=== PATIENT | male | born 1960 | race Caucasian/White ===

== ENCOUNTER 2018-12-05 10:26 | Observation (INO) | payer BC ==
[2018-12-05] MEDS ORDERED: methylPREDNISolone Sodium Succinate 125 MG/2 ML SDV IVPUSH ONE (10:28)
[2018-12-05] MEDS ORDERED: Albuterol/Ipratropium 3.0-0.5 MG/3 ML Neb Soln NEB ONE (10:28)
--- NOTE | 2018-12-05 10:39 | EDM.PDOC ---
ED HPI GENERAL MEDICAL PROBLEM - General Stated Complaint: SOB Time Seen by Provider: 12/05/18 10:33 Source of Information: Reports: Patient History Limitations: Reports: No Limitations - History of Present Illness INITIAL COMMENTS - FREE TEXT/NARRATIVE: HISTORY AND PHYSICAL: History of present illness: Patient is a 58-year-old male who presents to the emergency room with complaints of shortness of breath, fatigue, swelling to his lower extremities and abdomen. He states "usually my water pills take care of all this". He was seen in the emergency room on 11/17/18 and diagnosed with lower extremity edema and pneumonia. At that time his Lasix was refilled and he was placed on Levaquin. He states he felt well for approximately 7-10 days after his previous ER visit but symptoms started to return. Since his discharge from the emergency room he states that his abdomen is "collecting fluid and pushing up on my lungs ". He states that he has no previous history of ascites. Over the past several days he has been needing to sleep in his recliner as he cannot lay flat. He denies any fever, chills, chest pain, nausea, vomiting, diarrhea, constipation or dysuria. He states he has been able to eat and drink appropriately. Review of systems: As per history of present illness and below otherwise all systems reviewed and negative. Past medical history: As per history of present illness and as reviewed below otherwise noncontributory. Surgical history: As per history of present illness and as reviewed below otherwise noncontributory. Social history: See social history for further information Family history: As per history of present illness and as reviewed below otherwise noncontributory. Physical exam: General: Well-developed, overweight 58-year-old male. Alert and oriented. Obvious shortness of breath, which is exacerbated with physical activity and talking. HEENT: Atraumatic, normocephalic, pupils equal and reactive bilaterally, negative for conjunctival pallor or scleral icterus, mucous membranes moist, TMs normal bilaterally, throat clear, neck supple, nontender, trachea midline. No drooling or trismus noted. No meningeal signs. No hot potato voice noted. Lungs: Clear to auscultation, breath sounds equal bilaterally, chest nontender. Heart: S1S2, regular rate and rhythm without overt murmur Abdomen: Distended without ascites, obese, moderate tenderness throughout. Unable to appreciate masses. Negative for costovertebral tenderness. Pelvis: Stable nontender. Genitourinary: Deferred. Rectal: Deferred. Skin: Multiple scaly plaques to upper extremities and trunk (normal patient variance). Tight +2 edema to bilateral LE. Otherwise skin is intact, warm, dry. No lesions or rashes noted. Extremities: Atraumatic, moves all per self, tight +2 pitting edema to bilat LE , palpable pedal pulses bilat, negative for cords or calf pain. Neurovascular unremarkable. Neuro: Awake, alert, oriented. Cranial nerves II through XII unremarkable. Cerebellum unremarkable. Motor and sensory unremarkable throughout. Exam nonfocal. Notes: X-ray shows patchy opacities of the right base. Cardiomegaly with left atrial enlargement. Patient voided approx [address] of abdomen/pelvis shows deep tendon edema as well as flank edema. Enlarged liver. No ascites. Hydronephrosis of the left kidney with no obvious stone. No free air, bowel obstruction or other acute radiographic abnormalities. Suspected Liver disease. Dr. Santos was consulted on this case. He is agreeable to keeping this patient for observation admission. Patient is aware and agreeable. Diagnostics: CBC, CMP, UA, troponin, the BNP, chest x-ray, EKG, Influenza Therapeutics: Solu-Medrol, DuoNeb, Lasix, Rocephin Impression: RLL pneumonia Dyspnea Plan: Observation Med/Surg with telemetry Definitive disposition and diagnosis as appropriate pending reevaluation and review of above. Bilateral Leg Pain Score (Numeric/FACES): 6 - Related Data Allergies Allergy/AdvReac Type Severity Reaction Status Date / Time No Known Allergies Allergy Verified 12/05/18 10:40 Home Meds: Home Meds Furosemide [Lasix] 20 mg PO DAILY #30 tab 10/04/18 [Rx] Olmesartan Medoxomil [Benicar] 20 mg PO DAILY 12/05/18 [History] Past Medical History Cardiovascular History: Reports: High Cholesterol, Hypertension, Other (See Below) Other Cardiovascular History: Peripheral edema - Infectious Disease History Infectious Disease History: Reports: Chicken Pox, Measles, Mumps Social & Family History - Family History Family Medical History: Noncontributory - Caffeine Use Caffeine Use: Reports: Coffee ED ROS GENERAL - Review of Systems Review Of Systems: ROS reveals no pertinent complaints other than HPI. ED EXAM, GENERAL - Physical Exam Exam: See Below (See dictation) Course - Vital Signs Last Recorded V/S: Last Vital Signs Temp 99.2 F 12/05/18 10:37 Pulse 82 12/05/18 11:45 Resp 22 H 12/05/18 11:45 BP 180/87 H 12/05/18 11:45 Pulse Ox 93 L 12/05/18 11:45 - Orders/Labs/Meds Orders: Active Orders 24 hr Category Date Time Status Admission Status [Patient Status] [ADT] Stat ADT 12/05/18 12:27 Ordered Cardiac Monitoring [RC] . DIRECTED Care 12/05/18 12:27 Ordered EKG Documentation Completion [RC] STAT Care 12/05/18 10:28 Active RT Aerosol Therapy [RC] ASDIRECTED Care 12/05/18 10:28 Active Abdomen Pelvis wo Cont [CT] Stat Exams 12/05/18 10:40 Taken Chest 1V Frontal [CR] Stat Exams 12/05/18 10:28 Taken CULTURE BLOOD [BC] Stat Lab 12/05/18 11:06 Received CULTURE BLOOD [BC] Stat Lab 12/05/18 11:41 Received cefTRIAXone [Rocephin in Dextrose,Iso-Osm 1 GM/50 ML] 1 Med 12/05/18 12:28 Ordered gm Premix Bag 1 bag IV ONETIME Blood Culture x2 Reflex Set [OM.PC] Stat Oth 12/05/18 10:43 Ordered Medication Orders Ceftriaxone Sodium/Dextrose 1 (gm/ Premix) 50 mls @ 100 mls/hr IV ONETIME ONE Stop: 12/05/18 12:57 Labs: Laboratory Tests 12/05/18 12/05/18 12/05/18 Range/Units 10:42 10:42 10:42 WBC 7.11 (4.0-11.0) K/uL RBC 3.95 L (4.50-5.90) M/uL Hgb 12.3 L (13.0-17.0) g/dL Hct 36.9 L (38.0-50.0) % MCV 93.4 (80.0-98.0) fL MCH 31.1 (27.0-32.0) pg MCHC 33.3 (31.0-37.0) g/dL RDW Std Deviation 55.8 (28.0-62.0) fl RDW Coeff of Ald[place] 16 H (11.0-15.0) % Plt Count 156 (150-400) K/uL MPV 9.50 (7.40-12.00) fL Neut % (Auto) 70.7 (48.0-80.0) % Lymph % (Auto) 18.8 (16.0-40.0) % [place] % (Auto) 8.9 (0.0-15.0) % Eos % (Auto) 1.3 (0.0-7.0) % Baso % (Auto) 0.3 (0.0-1.5) % Neut # (Auto) 5.0 (1.4-5.7) K/uL Lymph # (Auto) 1.3 (0.6-2.4) K/uL [place] # (Auto) 0.6 (0.0-0.8) K/uL Eos # (Auto) 0.1 (0.0-0.7) K/uL Baso # (Auto) 0.0 (0.0-0.1) K/uL Nucleated RBC % 0.0 /100WBC Nucleated RBCs # 0 K/uL Lactate (0.20-2.00) mmol/L Sodium 132 L (136-148) mmol/L Potassium 4.7 (3.5-5.1) mmol/L Chloride 93 L (98-107) mmol/L Carbon Dioxide 31.0 (21.0-32.0) mmol/L BUN 12 (7.0-18.0) mg/dL Creatinine 1.3 (0.8-1.3) mg/dL Est Cr Clr Drug Dosing TNP Estimated GFR (MDRD) 57.1 ml/min Glucose 123 H (74-106) mg/dL Calcium 9.2 (8.5-10.1) mg/dL Total Bilirubin 1.5 H (0.2-1.0) mg/dL AST 20 (15-37) IU/L ALT 18 (14-63) IU/L Alkaline Phosphatase 152 H (46-116) U/L Troponin I < 0.050 (0.000-0.056) ng/mL B-Natriuretic Peptide 126 H (<100) PG/ML Total Protein 8.6 H (6.4-8.2) g/dL Albumin 3.3 L (3.4-5.0) g/dL Globulin 5.3 H (2.6-4.0) g/dL Albumin/Globulin Ratio 0.6 L (0.9-1.6) Urine Color Urine Appearance Urine pH (5.0-8.0) Ur Specific [place] (1.001-1.035) Urine Protein (NEGATIVE) mg/dL Urine Glucose (UA) (NEGATIVE) mg/dL Urine Ketones (NEGATIVE) mg/dL Urine Occult Blood (NEGATIVE) Urine Nitrite (NEGATIVE) Urine Bilirubin (NEGATIVE) Urine Urobilinogen (<2.0) EU/dL Ur Leukocyte Esterase (NEGATIVE) Urine RBC (0-2/HPF) Urine WBC (0-5/HPF) Ur Epithelial Cells (NONE-FEW) Urine Bacteria (NEGATIVE) 12/05/18 12/05/18 Range/Units 11:15 11:41 WBC (4.0-11.0) K/uL RBC (4.50-5.90) M/uL Hgb (13.0-17.0) g/dL Hct (38.0-50.0) % MCV (80.0-98.0) fL MCH (27.0-32.0) pg MCHC (31.0-37.0) g/dL RDW Std Deviation (28.0-62.0) fl RDW Coeff of [place] (11.0-15.0) % Plt Count (150-400) K/uL MPV (7.40-12.00) fL Neut % (Auto) (48.0-80.0) % Lymph % (Auto) (16.0-40.0) % [place] % (Auto) (0.0-15.0) % Eos % (Auto) (0.0-7.0) % Baso % (Auto) (0.0-1.5) % Neut # (Auto) (1.4-5.7) K/uL Lymph # (Auto) (0.6-2.4) K/uL [place] # (Auto) (0.0-0.8) K/uL Eos # (Auto) (0.0-0.7) K/uL Baso # (Auto) (0.0-0.1) K/uL Nucleated RBC % /100WBC Nucleated RBCs # K/uL Lactate 2.8 H (0.20-2.00) mmol/L Sodium (136-148) mmol/L Potassium (3.5-5.1) mmol/L Chloride (98-107) mmol/L Carbon Dioxide (21.0-32.0) mmol/L BUN (7.0-18.0) mg/dL Creatinine (0.8-1.3) mg/dL Est Cr Clr Drug Dosing Estimated GFR (MDRD) ml/min Glucose (74-106) mg/dL Calcium (8.5-10.1) mg/dL Total Bilirubin (0.2-1.0) mg/dL AST (15-37) IU/L ALT (14-63) IU/L Alkaline Phosphatase (46-116) U/L Troponin I (0.000-0.056) ng/mL B-Natriuretic Peptide (<100) PG/ML Total Protein (6.4-8.2) g/dL Albumin (3.4-5.0) g/dL Globulin (2.6-4.0) g/dL Albumin/Globulin Ratio (0.9-1.6) Urine Color YELLOW Urine Appearance CLEAR Urine pH 6.0 (5.0-8.0) Ur Specific [place] 1.020 (1.001-1.035) Urine Protein NEGATIVE (NEGATIVE) mg/dL Urine Glucose (UA) NEGATIVE (NEGATIVE) mg/dL Urine Ketones NEGATIVE (NEGATIVE) mg/dL Urine Occult Blood TRACE-INTACT H (NEGATIVE) Urine Nitrite NEGATIVE (NEGATIVE) Urine Bilirubin NEGATIVE (NEGATIVE) Urine Urobilinogen 0.2 (<2.0) EU/dL Ur Leukocyte Esterase NEGATIVE (NEGATIVE) Urine RBC 0-1 (0-2/HPF) Urine WBC 0-1 (0-5/HPF) Ur Epithelial Cells NOT SEEN (NONE-FEW) Urine Bacteria RARE (NEGATIVE) Meds: Medications Generic Name Dose Route Start Last Admin Trade Name Freq PRN Reason Stop Dose Admin Ceftriaxone Sodium/Dextrose 1 50 mls @ 100 mls/hr 12/05/18 12:28 gm/ Premix IV 12/05/18 12:57 ONETIME ONE Discontinued Medications Generic Name Dose Route Start Last Admin Trade Name Freq PRN Reason Stop Dose Admin Albuterol/Ipratropium 3 ml 12/05/18 10:28 12/05/18 10:56 Duoneb 3.0-0.5 Mg/3 Ml NEB 12/05/18 10:29 3 ml ONETIME ONE Administration Furosemide 40 mg 12/05/18 10:44 12/05/18 11:01 Lasix IVPUSH 12/05/18 10:45 40 mg NOW ONE Administration Methylprednisolone Sodium Succinate 125 mg 12/05/18 10:28 12/05/18 11:01 Solu-Medrol IVPUSH 12/05/18 10:29 125 mg ONETIME ONE Administration Departure - Departure Time of Disposition: 12:26 Disposition: Refer to Observation Clinical Impression: Dyspnea Qualifiers: Dyspnea type: unspecified Qualified Code(s): R06.00 - Dyspnea, unspecified Pneumonia Qualifiers: Pneumonia type: due to unspecified organism Laterality: right Lung location: lower lobe of lung Qualified Code(s): J18.1 - Lobar pneumonia, unspecified organism - Discharge Information Referrals: PCP,None [Primary Care Provider] - - My Orders Last 24 Hours: My Active Orders 12/05/18 10:28 EKG Documentation Completion [RC] STAT RT Aerosol Therapy [RC] ASDIRECTED Chest 1V Frontal [CR] Stat 12/05/18 10:40 Abdomen Pelvis wo Cont [CT] Stat 12/05/18 10:43 Blood Culture x2 Reflex Set [OM.PC] Stat 12/05/18 11:06 CULTURE BLOOD [BC] Stat 12/05/18 11:41 CULTURE BLOOD [BC] Stat 12/05/18 12:27 Admission Status [Patient Status] [ADT] Stat Cardiac Monitoring [RC] . DIRECTED 12/05/18 12:28 cefTRIAXone [Rocephin in Dextrose,Iso-Osm 1 GM/50 ML] 1 gm Premix Bag 1 bag IV ONETIME - Assessment/Plan Last 24 Hours: My Active Orders 12/05/18 10:28 EKG Documentation Completion [RC] STAT RT Aerosol Therapy [RC] ASDIRECTED Chest 1V Frontal [CR] Stat 12/05/18 10:40 Abdomen Pelvis wo Cont [CT] Stat 12/05/18 10:43 Blood Culture x2 Reflex Set [OM.PC] Stat 12/05/18 11:06 CULTURE BLOOD [BC] Stat 12/05/18 11:41 CULTURE BLOOD [BC] Stat 12/05/18 12:27 Admission Status [Patient Status] [ADT] Stat Cardiac Monitoring [RC] . DIRECTED 12/05/18 12:28 cefTRIAXone [Rocephin in Dextrose,Iso-Osm 1 GM/50 ML] 1 gm Premix Bag 1 bag IV ONETIME
[2018-12-05] MEDS ORDERED: Furosemide 40 MG/4 ML VIAL IVPUSH ONE (10:44)
[2018-12-05 11:23] LABS: CHLORIDE,CL 93 mmol/L (98-107); SODIUM,NA 132 mmol/L (136-148)
[2018-12-05] MEDS ORDERED: cefTRIAXone 1 GM in Premix Bag 1 BAG IV ONE (12:28)
[2018-12-05] MEDS ORDERED: Sodium Chloride 0.9% 2.5 ML Syringe FLUSH PRN (13:40)
[2018-12-05] MEDS ORDERED: Acetaminophen 325 MG Tab PO PRN (13:40)
[2018-12-05] MEDS ORDERED: Sodium Chloride 0.9% 10 ML Syringe FLUSH PRN (13:40)
[2018-12-05] MEDS ORDERED: Ondansetron 4 MG Tab.DIS PO PRN (13:40)
[2018-12-05] MEDS ORDERED: Temazepam 15 MG Cap PO PRN (13:40)
[2018-12-05] MEDS ORDERED: Albuterol/Ipratropium 3.0-0.5 MG/3 ML Neb Soln NEB PRN (13:40)
[2018-12-05] MEDS ORDERED: Bisacodyl 5 MG Tab PO PRN (13:40)
--- NOTE | 2018-12-05 13:44 | PCM.HP ---
H&P History of Present Illness - General Date of Service: 12/05/18 Admit Problem/Dx: Admission Diagnosis/Problem Admission Diagnosis/Problem Pneumonia Source of Information: Patient, Old Records History Limitations: Reports: No Limitations - History of Present Illness Initial Comments - Free Text/Narative: The patient is a 58-year-old gentleman who appears in into the emergency department with worsening shortness of breath and generalized swelling in his thighs and lower extremities. The patient says that he has been taking his Lasix although this has not worked for him. He also says that he has had difficulty sleeping over the past couple of days secondary to orthopnea. The patient has denied any dizziness or lightheadedness. He's had no nausea or vomiting. The patient has no history of heart disease or cardiomyopathy. The patient had cardiomyopathy on chest x-ray. The patient's chest x-ray does show patchy infiltrates predominantly and right lower lobe. Onset of Symptoms: Reports: Gradual Duration of Symptoms: Reports: Day(s): Location: Reports: Chest Quality: Reports: Dull Severity: Moderate Improves with: Reports: None Worsens with: Reports: None Associated Symptoms: Reports: Shortness of Breath Bilateral Leg Pain Score (Numeric/FACES): 6 - Related Data Allergies/Adverse Reactions: Allergies Allergy/AdvReac Type Severity Reaction Status Date / Time No Known Allergies Allergy Verified 12/05/18 10:40 Home Medications: Home Meds Furosemide [Lasix] 20 mg PO DAILY #30 tab 10/04/18 [Rx] Olmesartan Medoxomil [Benicar] 20 mg PO DAILY 12/05/18 [History] Past Medical History HEENT History: Reports: None Cardiovascular History: Reports: High Cholesterol, Hypertension, Other (See Below) Other Cardiovascular History: Peripheral edema Respiratory History: Reports: SOB Gastrointestinal History: Reports: None Genitourinary History: Reports: Renal Calculus Musculoskeletal History: Reports: None Neurological History: Reports: None Psychiatric History: Reports: None Endocrine/Metabolic History: Reports: None Hematologic History: Reports: None 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) - Infectious Disease History Infectious Disease History: Reports: Chicken Pox, Measles, Mumps Social & Family History - Family History Family Medical History: Noncontributory - Tobacco Use Smoking Status *Q: Current Every Day Smoker Years of Tobacco use: 40 Packs/Tins Daily: 1 - Caffeine Use Caffeine Use: Reports: Coffee - Alcohol Use Days Per Week of Alcohol Use: 7 Number of Drinks Per Day: 2 Total Drinks Per Week: 14 - Recreational Drug Use Recreational Drug Use: No H&P Review of Systems - Review of Systems: Review Of Systems: See Below General: Reports: Malaise, Weakness HEENT: Reports: No Symptoms Pulmonary: Reports: Shortness of Breath, Wheezing, Cough Cardiovascular: Reports: Chest Pain, Orthopnea Gastrointestinal: Reports: No Symptoms Genitourinary: Reports: No Symptoms Musculoskeletal: Reports: No Symptoms Skin: Reports: Rash Psychiatric: Reports: No Symptoms Neurological: Reports: No Symptoms Hematologic/Lymphatic: Reports: No Symptoms Immunologic: Reports: No Symptoms Exam - Exam Exam: See Below - Vital Signs Vital Signs: Last Vital Signs Temp 37.3 C 12/05/18 10:37 Pulse 82 12/05/18 11:45 Resp 22 H 12/05/18 11:45 BP 180/87 H 12/05/18 11:45 Pulse Ox 93 L 12/05/18 11:45 - Exam Quality Assessment: No: Supplemental Oxygen General: Alert, Oriented, Cooperative, Mild Distress HEENT: Conjunctiva Clear, EACs Clear, EOMI, Hearing Intact, Pupils Equal, PERRLA. No: Mucosa Moist & Magness (Dry) Neck: Supple, Trachea Midline Lungs: Crackles (Bi basilar) Cardiovascular: Regular Rate, Regular Rhythm GI/Abdominal Exam: Normal Bowel Sounds, No Distention (Not able to palpate secondary to patient body habitus) (Male) Exam: Deferred Rectal (Males) Exam: Deferred Back Exam: Normal Inspection, Full Range of Motion Extremities: Normal Inspection, Pedal Edema (Anasarca) Skin: Warm, Dry, Rash (Ichthyosiform rash to torso and arms) Neurological: Cranial Nerves Intact Psychiatric: Alert, Normal Affect, Normal Mood - Patient Data Lab Results Last 24 hrs: Laboratory Results - last 24 hr 12/05/18 12/05/18 12/05/18 Range/Units 10:42 10:42 10:42 WBC 7.11 (4.0-11.0) K/uL RBC 3.95 L (4.50-5.90) M/uL Hgb 12.3 L (13.0-17.0) g/dL Hct 36.9 L (38.0-50.0) % MCV 93.4 (80.0-98.0) fL MCH 31.1 (27.0-32.0) pg MCHC 33.3 (31.0-37.0) g/dL RDW Std Deviation 55.8 (28.0-62.0) fl RDW Coeff of Alda 16 H (11.0-15.0) % Plt Count 156 (150-400) K/uL MPV 9.50 (7.40-12.00) fL Neut % (Auto) 70.7 (48.0-80.0) % Lymph % (Auto) 18.8 (16.0-40.0) % [place] % (Auto) 8.9 (0.0-15.0) % Eos % (Auto) 1.3 (0.0-7.0) % Baso % (Auto) 0.3 (0.0-1.5) % Neut # (Auto) 5.0 (1.4-5.7) K/uL Lymph # (Auto) 1.3 (0.6-2.4) K/uL [place] # (Auto) 0.6 (0.0-0.8) K/uL Eos # (Auto) 0.1 (0.0-0.7) K/uL Baso # (Auto) 0.0 (0.0-0.1) K/uL Nucleated RBC % 0.0 /100WBC Nucleated RBCs # 0 K/uL Lactate (0.20-2.00) mmol/L Sodium 132 L (136-148) mmol/L Potassium 4.7 (3.5-5.1) mmol/L Chloride 93 L (98-107) mmol/L Carbon Dioxide 31.0 (21.0-32.0) mmol/L BUN 12 (7.0-18.0) mg/dL Creatinine 1.3 (0.8-1.3) mg/dL Est Cr Clr Drug Dosing TNP Estimated GFR (MDRD) 57.1 ml/min Glucose 123 H (74-106) mg/dL Calcium 9.2 (8.5-10.1) mg/dL Total Bilirubin 1.5 H (0.2-1.0) mg/dL AST 20 (15-37) IU/L ALT 18 (14-63) IU/L Alkaline Phosphatase 152 H (46-116) U/L Troponin I < 0.050 (0.000-0.056) ng/mL B-Natriuretic Peptide 126 H (<100) PG/ML Total Protein 8.6 H (6.4-8.2) g/dL Albumin 3.3 L (3.4-5.0) g/dL Globulin 5.3 H (2.6-4.0) g/dL Albumin/Globulin Ratio 0.6 L (0.9-1.6) Urine Color Urine Appearance Urine pH (5.0-8.0) Ur Specific [place] (1.001-1.035) Urine Protein (NEGATIVE) mg/dL Urine Glucose (UA) (NEGATIVE) mg/dL Urine Ketones (NEGATIVE) mg/dL Urine Occult Blood (NEGATIVE) Urine Nitrite (NEGATIVE) Urine Bilirubin (NEGATIVE) Urine Urobilinogen (<2.0) EU/dL Ur Leukocyte Esterase (NEGATIVE) Urine RBC (0-2/HPF) Urine WBC (0-5/HPF) Ur Epithelial Cells (NONE-FEW) Urine Bacteria (NEGATIVE) 12/05/18 12/05/18 Range/Units 11:15 11:41 WBC (4.0-11.0) K/uL RBC (4.50-5.90) M/uL Hgb (13.0-17.0) g/dL Hct (38.0-50.0) % MCV (80.0-98.0) fL MCH (27.0-32.0) pg MCHC (31.0-37.0) g/dL RDW Std Deviation (28.0-62.0) fl RDW Coeff of Alda (11.0-15.0) % Plt Count (150-400) K/uL MPV (7.40-12.00) fL Neut % (Auto) (48.0-80.0) % Lymph % (Auto) (16.0-40.0) % [place] % (Auto) (0.0-15.0) % Eos % (Auto) (0.0-7.0) % Baso % (Auto) (0.0-1.5) % Neut # (Auto) (1.4-5.7) K/uL Lymph # (Auto) (0.6-2.4) K/uL [place] # (Auto) (0.0-0.8) K/uL Eos # (Auto) (0.0-0.7) K/uL Baso # (Auto) (0.0-0.1) K/uL Nucleated RBC % /100WBC Nucleated RBCs # K/uL Lactate 2.8 H (0.20-2.00) mmol/L Sodium (136-148) mmol/L Potassium (3.5-5.1) mmol/L Chloride (98-107) mmol/L Carbon Dioxide (21.0-32.0) mmol/L BUN (7.0-18.0) mg/dL Creatinine (0.8-1.3) mg/dL Est Cr Clr Drug Dosing Estimated GFR (MDRD) ml/min Glucose (74-106) mg/dL Calcium (8.5-10.1) mg/dL Total Bilirubin (0.2-1.0) mg/dL AST (15-37) IU/L ALT (14-63) IU/L Alkaline Phosphatase (46-116) U/L Troponin I (0.000-0.056) ng/mL B-Natriuretic Peptide (<100) PG/ML Total Protein (6.4-8.2) g/dL Albumin (3.4-5.0) g/dL Globulin (2.6-4.0) g/dL Albumin/Globulin Ratio (0.9-1.6) Urine Color YELLOW Urine Appearance CLEAR Urine pH 6.0 (5.0-8.0) Ur Specific [place] 1.020 (1.001-1.035) Urine Protein NEGATIVE (NEGATIVE) mg/dL Urine Glucose (UA) NEGATIVE (NEGATIVE) mg/dL Urine Ketones NEGATIVE (NEGATIVE) mg/dL Urine Occult Blood TRACE-INTACT H (NEGATIVE) Urine Nitrite NEGATIVE (NEGATIVE) Urine Bilirubin NEGATIVE (NEGATIVE) Urine Urobilinogen 0.2 (<2.0) EU/dL Ur Leukocyte Esterase NEGATIVE (NEGATIVE) Urine RBC 0-1 (0-2/HPF) Urine WBC 0-1 (0-5/HPF) Ur Epithelial Cells NOT SEEN (NONE-FEW) Urine Bacteria RARE (NEGATIVE) Result Diagrams: 12/05/18 10:42 12/05/18 10:42 Mert Results Last 24 hrs: Microbiology 12/05/18 12:00 Influenza Type A Antigen Screen - Final Nasopharyngeal Swab NEGATIVE INFLUENZA A VIRUS AG Influenza Type B Antigen Screen - Final NEGATIVE INFLUENZA B VIRUS AG *Q Meaningful Use (ADM) - VTE *Q VTE Mechanical Contraindications *Q: Bilateral Lower Dermatits - Problem List (1) Pneumonia SNOMED Code(s): 701885012 ICD Code: J18.9 - PNEUMONIA, UNSPECIFIED ORGANISM Status: Acute Priority : High Current Visit: Yes Qualifiers: Pneumonia type: due to unspecified organism Laterality: right Lung location: lower lobe of lung Qualified Code(s): J18.1 - Lobar pneumonia, unspecified organism (2) Cardiomyopathy SNOMED Code(s): 23560954 ICD Code: I42.9 - CARDIOMYOPATHY, UNSPECIFIED Status: Acute Priority: High Current Visit: Yes Qualifiers: Cardiomyopathy type: unspecified Qualified Code(s): I42.9 - Cardiomyopathy , unspecified (3) Morbid obesity SNOMED Code(s): 038717874 ICD Code: E66.01 - MORBID (SEVERE) OBESITY DUE TO EXCESS CALORIES Status: Chronic Priority: High Current Visit: Yes (4) Dyspnea SNOMED Code(s): 810403760 ICD Code: R06.00 - DYSPNEA, UNSPECIFIED Status: Acute Priority: High Current Visit: Yes Qualifiers: Dyspnea type: orthopnea Qualified Code(s): R06.01 - Orthopnea Problem List Initiated/Reviewed/Updated: Yes Orders Last 24hrs: Active Orders 24 hr Category Date Time Status Admission Status [Patient Status] [ADT] Stat ADT 12/05/18 12:27 Active Cardiac Monitoring [RC] . DIRECTED Care 12/05/18 12:27 Active Communication, Vaccine [RC] PER UNIT ROUTINE Care 12/05/18 13:43 Ordered Oxygen Therapy [RC] PRN Care 12/05/18 13:40 Ordered RT Aerosol Therapy [RC] ASDIRECTED Care 12/05/18 10:28 Active RT Aerosol Therapy [RC] ASDIRECTED Care 12/05/18 13:43 Ordered Up ad Nelda [RC] ASDIRECTED Care 12/05/18 13:40 Ordered VTE/DVT Education [RC] PER UNIT ROUTINE Care 12/05/18 13:40 Ordered Vaccines to be Administered [RC] PER UNIT ROUTINE Care 12/05/18 13:43 Ordered Vital Signs [RC] Q4H Care 12/05/18 13:40 Ordered Heart Healthy Diet [DIET] Diet 12/05/18 Dinner Ordered Abdomen Pelvis wo Cont [CT] Stat Exams 12/05/18 10:40 Taken Chest 1V Frontal [CR] Stat Exams 12/05/18 10:28 Taken CBC WITH AUTO DIFF [HEME] AM Lab 12/06/18 05:11 Ordered COMPREHENSIVE METABOLIC PN,CMP [CHEM] AM Lab 12/06/18 05:11 Ordered CULTURE BLOOD [BC] Stat Lab 12/05/18 11:06 Received CULTURE BLOOD [BC] Stat Lab 12/05/18 11:41 Received Acetaminophen [Tylenol] Med 12/05/18 13:40 Ordered 650 mg PO Q4H PRN Albuterol/Ipratropium [DuoNeb 3.0-0.5 MG/3 ML] Med 12/05/18 13:40 Ordered 3 ml NEB Q4HRRT PRN Bisacodyl [Dulcolax] Med 12/05/18 13:40 Ordered 5 mg PO DAILY PRN Enoxaparin [Lovenox] Med 12/05/18 13:45 Ordered 30 mg SUBCUT Q24H Nicotine [Habitrol] Med 12/05/18 13:45 Ordered 14 mg TRDERM DAILY Olmesartan [Benicar] Med 12/06/18 09:00 Ordered 20 mg PO DAILY Ondansetron [Zofran ODT] Med 12/05/18 13:40 Ordered 4 mg PO Q6H PRN Sodium Chloride 0.9% [Saline Flush] Med 12/05/18 13:40 Ordered 10 ml FLUSH ASDIRECTED PRN Sodium Chloride 0.9% [Saline Flush] Med 12/05/18 13:40 Ordered 2.5 ml FLUSH ASDIRECTED PRN Temazepam [Restoril] Med 12/05/18 13:40 Ordered 15 mg PO BEDTIME PRN oxyCODONE Med 12/05/18 13:40 Ordered 5 mg PO Q4H PRN Blood Culture x2 Reflex Set [OM.PC] Stat Oth 12/05/18 10:43 Ordered GM Immunization Reflex [OM.PC] Click To Edit Oth 12/05/18 13:40 Ordered Saline Lock Insert [OM.PC] Routine Oth 12/05/18 13:40 Ordered VTE Mechanical Contraindications [AST] Per Unit Routine Oth 12/05/18 13:40 Ordered Resuscitation Status Routine Resus Stat 12/05/18 13:40 Ordered Assessment/Plan Comment:: The patient is a 58-year-old gentleman who had presented to the emergency department with worsening lower extremity edema. Chest x-ray is consistent with cardiomyopathy. As a result of this I've ordered a 2-D echocardiogram to help to exclude pulmonary hypertension and cor pulmonale. His so this is likely patient relations representative of right-sided heart failure. The patient will have saline lock of his IV. I've also ordered Lasix for this gentleman and his CT scan showed hepatomegaly and ordered an ultrasound of his liver to exclude hepatic congestion and/or fatty liver. Should be interesting to note that the patient CLT and AST are normal. The patient will also be given Lovenox for DVT prophylaxis. The patient will also be kept on telemetry. Also vital signs will be taken every 4 hours and his antihypertensive medication will be adjusted as necessary. Also the patient will have repeat troponins completed.
[2018-12-05] MEDS: Enoxaparin 40 MG/0.4 ML Syringe SUBCUT SCH (15:29)
[2018-12-05] MEDS: Nicotine 14 MG/24 Hr Patch TRDERM SCH (15:36)
[2018-12-05] MEDS: oxyCODONE 5 MG Tab PO PRN (20:21)
[2018-12-06 03:53] LABS: CHLORIDE,CL 94 mmol/L (98-107); SODIUM,NA 131 mmol/L (136-148)
[2018-12-06] MEDS: Olmesartan 20 MG Tab PO SCH (08:37)
[2018-12-06] MEDS: Furosemide 40 MG/4 ML VIAL IVPUSH SCH ×2 (08:40→20:24)
[2018-12-06] MEDS: cefTRIAXone 1 GM in Sodium Chloride 0.9% 50 ML IV SCH (08:41)
[2018-12-06] MEDS: Nicotine 14 MG/24 Hr Patch TRDERM SCH (08:45)
--- NOTE | 2018-12-06 08:51 | PCM.PN ---
- General Info Date of Service: 12/06/18 Subjective Update: Patient says he feels much better. Was able to sleep at night without difficulty. Is scheduled to get an echocardiogram and US of the RUQ this AM. He denies any fever, chest pain, nausea or vomiting. - Review of Systems General: Reports: Other (see hpi) - Patient Data Vitals - Most Recent: Last Vital Signs Temp 36.6 C 12/06/18 08:35 Pulse 74 12/06/18 08:35 Resp 16 12/06/18 08:35 BP 167/90 H 12/06/18 08:37 Pulse Ox 94 L 12/06/18 08:35 Weight - Most Recent: 128.956 kg I&O - Last 24 Hours: Intake & Output 12/05/18 12/06/18 12/06/18 22:59 06:59 14:59 Intake Total 0 500 Output Total 700 1900 Balance -700 -1400 Lab Results Last 24 Hours: Laboratory Results - last 24 hr 12/05/18 12/05/18 12/05/18 Range/Units 10:42 10:42 10:42 WBC 7.11 (4.0-11.0) K/uL RBC 3.95 L (4.50-5.90) M/uL Hgb 12.3 L (13.0-17.0) g/dL Hct 36.9 L (38.0-50.0) % MCV 93.4 (80.0-98.0) fL MCH 31.1 (27.0-32.0) pg MCHC 33.3 (31.0-37.0) g/dL RDW Std Deviation 55.8 (28.0-62.0) fl RDW Coeff of Alda 16 H (11.0-15.0) % Plt Count 156 (150-400) K/uL MPV 9.50 (7.40-12.00) fL Neut % (Auto) 70.7 (48.0-80.0) % Lymph % (Auto) 18.8 (16.0-40.0) % [place] % (Auto) 8.9 (0.0-15.0) % Eos % (Auto) 1.3 (0.0-7.0) % Baso % (Auto) 0.3 (0.0-1.5) % Neut # (Auto) 5.0 (1.4-5.7) K/uL Lymph # (Auto) 1.3 (0.6-2.4) K/uL [place] # (Auto) 0.6 (0.0-0.8) K/uL Eos # (Auto) 0.1 (0.0-0.7) K/uL Baso # (Auto) 0.0 (0.0-0.1) K/uL Nucleated RBC % 0.0 /100WBC Nucleated RBCs # 0 K/uL Lactate (0.20-2.00) mmol/L Sodium 132 L (136-148) mmol/L Potassium 4.7 (3.5-5.1) mmol/L Chloride 93 L (98-107) mmol/L Carbon Dioxide 31.0 (21.0-32.0) mmol/L BUN 12 (7.0-18.0) mg/dL Creatinine 1.3 (0.8-1.3) mg/dL Est Cr Clr Drug Dosing TNP Estimated GFR (MDRD) 57.1 ml/min Glucose 123 H (74-106) mg/dL Calcium 9.2 (8.5-10.1) mg/dL Total Bilirubin 1.5 H (0.2-1.0) mg/dL AST 20 (15-37) IU/L ALT 18 (14-63) IU/L Alkaline Phosphatase 152 H (46-116) U/L Troponin I < 0.050 (0.000-0.056) ng/mL B-Natriuretic Peptide 126 H (<100) PG/ML Total Protein 8.6 H (6.4-8.2) g/dL Albumin 3.3 L (3.4-5.0) g/dL Globulin 5.3 H (2.6-4.0) g/dL Albumin/Globulin Ratio 0.6 L (0.9-1.6) Urine Color Urine Appearance Urine pH (5.0-8.0) Ur Specific S[place]y (1.001-1.035) Urine Protein (NEGATIVE) mg/dL Urine Glucose (UA) (NEGATIVE) mg/dL Urine Ketones (NEGATIVE) mg/dL Urine Occult Blood (NEGATIVE) Urine Nitrite (NEGATIVE) Urine Bilirubin (NEGATIVE) Urine Urobilinogen (<2.0) EU/dL Ur Leukocyte Esterase (NEGATIVE) Urine RBC (0-2/HPF) Urine WBC (0-5/HPF) Ur Epithelial Cells (NONE-FEW) Urine Bacteria (NEGATIVE) 12/05/18 12/05/18 12/05/18 Range/Units 11:15 11:41 15:32 WBC (4.0-11.0) K/uL RBC (4.50-5.90) M/uL Hgb (13.0-17.0) g/dL Hct (38.0-50.0) % MCV (80.0-98.0) fL MCH (27.0-32.0) pg MCHC (31.0-37.0) g/dL RDW Std Deviation (28.0-62.0) fl RDW Coeff of Alda (11.0-15.0) % Plt Count (150-400) K/uL MPV (7.40-12.00) fL Neut % (Auto) (48.0-80.0) % Lymph % (Auto) (16.0-40.0) % [place] % (Auto) (0.0-15.0) % Eos % (Auto) (0.0-7.0) % Baso % (Auto) (0.0-1.5) % Neut # (Auto) (1.4-5.7) K/uL Lymph # (Auto) (0.6-2.4) K/uL [place] # (Auto) (0.0-0.8) K/uL Eos # (Auto) (0.0-0.7) K/uL Baso # (Auto) (0.0-0.1) K/uL Nucleated RBC % /100WBC Nucleated RBCs # K/uL Lactate 2.8 H (0.20-2.00) mmol/L Sodium (136-148) mmol/L Potassium (3.5-5.1) mmol/L Chloride (98-107) mmol/L Carbon Dioxide (21.0-32.0) mmol/L BUN (7.0-18.0) mg/dL Creatinine (0.8-1.3) mg/dL Est Cr Clr Drug Dosing Estimated GFR (MDRD) ml/min Glucose (74-106) mg/dL Calcium (8.5-10.1) mg/dL Total Bilirubin (0.2-1.0) mg/dL AST (15-37) IU/L ALT (14-63) IU/L Alkaline Phosphatase (46-116) U/L Troponin I < 0.050 (0.000-0.056) ng/mL B-Natriuretic Peptide (<100) PG/ML Total Protein (6.4-8.2) g/dL Albumin (3.4-5.0) g/dL Globulin (2.6-4.0) g/dL Albumin/Globulin Ratio (0.9-1.6) Urine Color YELLOW Urine Appearance CLEAR Urine pH 6.0 (5.0-8.0) Ur Specific Sibley 1.020 (1.001-1.035) Urine Protein NEGATIVE (NEGATIVE) mg/dL Urine Glucose (UA) NEGATIVE (NEGATIVE) mg/dL Urine Ketones NEGATIVE (NEGATIVE) mg/dL Urine Occult Blood TRACE-INTACT H (NEGATIVE) Urine Nitrite NEGATIVE (NEGATIVE) Urine Bilirubin NEGATIVE (NEGATIVE) Urine Urobilinogen 0.2 (<2.0) EU/dL Ur Leukocyte Esterase NEGATIVE (NEGATIVE) Urine RBC 0-1 (0-2/HPF) Urine WBC 0-1 (0-5/HPF) Ur Epithelial Cells NOT SEEN (NONE-FEW) Urine Bacteria RARE (NEGATIVE) 12/05/18 12/05/18 12/05/18 Range/Units 15:32 21:02 21:02 WBC (4.0-11.0) K/uL RBC (4.50-5.90) M/uL Hgb (13.0-17.0) g/dL Hct (38.0-50.0) % MCV (80.0-98.0) fL MCH (27.0-32.0) pg MCHC (31.0-37.0) g/dL RDW Std Deviation (28.0-62.0) fl RDW Coeff of Alda (11.0-15.0) % Plt Count (150-400) K/uL MPV (7.40-12.00) fL Neut % (Auto) (48.0-80.0) % Lymph % (Auto) (16.0-40.0) % [place] % (Auto) (0.0-15.0) % Eos % (Auto) (0.0-7.0) % Baso % (Auto) (0.0-1.5) % Neut # (Auto) (1.4-5.7) K/uL Lymph # (Auto) (0.6-2.4) K/uL [place] # (Auto) (0.0-0.8) K/uL Eos # (Auto) (0.0-0.7) K/uL Baso # (Auto) (0.0-0.1) K/uL Nucleated RBC % /100WBC Nucleated RBCs # K/uL Lactate 2.4 H 2.1 H (0.20-2.00) mmol/L Sodium (136-148) mmol/L Potassium (3.5-5.1) mmol/L Chloride (98-107) mmol/L Carbon Dioxide (21.0-32.0) mmol/L BUN (7.0-18.0) mg/dL Creatinine (0.8-1.3) mg/dL Est Cr Clr Drug Dosing Estimated GFR (MDRD) ml/min Glucose (74-106) mg/dL Calcium (8.5-10.1) mg/dL Total Bilirubin (0.2-1.0) mg/dL AST (15-37) IU/L ALT (14-63) IU/L Alkaline Phosphatase (46-116) U/L Troponin I < 0.050 (0.000-0.056) ng/mL B-Natriuretic Peptide (<100) PG/ML Total Protein (6.4-8.2) g/dL Albumin (3.4-5.0) g/dL Globulin (2.6-4.0) g/dL Albumin/Globulin Ratio (0.9-1.6) Urine Color Urine Appearance Urine pH (5.0-8.0) Ur Specific Sibley (1.001-1.035) Urine Protein (NEGATIVE) mg/dL Urine Glucose (UA) (NEGATIVE) mg/dL Urine Ketones (NEGATIVE) mg/dL Urine Occult Blood (NEGATIVE) Urine Nitrite (NEGATIVE) Urine Bilirubin (NEGATIVE) Urine Urobilinogen (<2.0) EU/dL Ur Leukocyte Esterase (NEGATIVE) Urine RBC (0-2/HPF) Urine WBC (0-5/HPF) Ur Epithelial Cells (NONE-FEW) Urine Bacteria (NEGATIVE) 0112/06/18 12/06/18 Range/Units 03:20 03:20 03:20 WBC 8.15 (4.0-11.0) K/uL RBC 4.20 L (4.50-5.90) M/uL Hgb 13.2 (13.0-17.0) g/dL Hct 39.0 (38.0-50.0) % MCV 92.9 (80.0-98.0) fL MCH 31.4 (27.0-32.0) pg MCHC 33.8 (31.0-37.0) g/dL RDW Std Deviation 54.2 (28.0-62.0) fl RDW Coeff of Alda 16 H (11.0-15.0) % Plt Count 116 L (150-400) K/uL MPV 9.60 (7.40-12.00) fL Neut % (Auto) 90.2 H (48.0-80.0) % Lymph % (Auto) 6.7 L (16.0-40.0) % [place] % (Auto) 3.1 (0.0-15.0) % Eos % (Auto) 0.0 (0.0-7.0) % Baso % (Auto) 0.0 (0.0-1.5) % Neut # (Auto) 7.4 H (1.4-5.7) K/uL Lymph # (Auto) 0.6 (0.6-2.4) K/uL [place] # (Auto) 0.3 (0.0-0.8) K/uL Eos # (Auto) 0.0 (0.0-0.7) K/uL Baso # (Auto) 0.0 (0.0-0.1) K/uL Nucleated RBC % 0.0 /100WBC Nucleated RBCs # 0 K/uL Lactate 1.2 (0.20-2.00) mmol/L Sodium 131 L (136-148) mmol/L Potassium 4.6 (3.5-5.1) mmol/L Chloride 94 L (98-107) mmol/L Carbon Dioxide 27.8 (21.0-32.0) mmol/L BUN 16 (7.0-18.0) mg/dL Creatinine 1.1 (0.8-1.3) mg/dL Est Cr Clr Drug Dosing 79.86 Estimated GFR (MDRD) > 60.0 ml/min Glucose 181 H (74-106) mg/dL Calcium 8.4 L (8.5-10.1) mg/dL Total Bilirubin 1.5 H (0.2-1.0) mg/dL AST 20 (15-37) IU/L ALT 15 (14-63) IU/L Alkaline Phosphatase 133 H (46-116) U/L Troponin I (0.000-0.056) ng/mL B-Natriuretic Peptide (<100) PG/ML Total Protein 8.4 H (6.4-8.2) g/dL Albumin 3.1 L (3.4-5.0) g/dL Globulin 5.3 H (2.6-4.0) g/dL Albumin/Globulin Ratio 0.6 L (0.9-1.6) Urine Color Urine Appearance Urine pH (5.0-8.0) Ur Specific Sibley (1.001-1.035) Urine Protein (NEGATIVE) mg/dL Urine Glucose (UA) (NEGATIVE) mg/dL Urine Ketones (NEGATIVE) mg/dL Urine Occult Blood (NEGATIVE) Urine Nitrite (NEGATIVE) Urine Bilirubin (NEGATIVE) Urine Urobilinogen (<2.0) EU/dL Ur Leukocyte Esterase (NEGATIVE) Urine RBC (0-2/HPF) Urine WBC (0-5/HPF) Ur Epithelial Cells (NONE-FEW) Urine Bacteria (NEGATIVE) Mert Results Last 24 Hours: Microbiology 12/05/18 12:00 Influenza Type A Antigen Screen - Final Nasopharyngeal Swab NEGATIVE INFLUENZA A VIRUS AG Influenza Type B Antigen Screen - Final NEGATIVE INFLUENZA B VIRUS AG Med Orders - Current: Current Medications Acetaminophen (Tylenol) 650 mg PO Q4H PRN PRN Reason: Pain (Mild 1-3)/fever Albuterol/Ipratropium (Duoneb 3.0-0.5 Mg/3 Ml) 3 ml NEB Q4HRRT PRN PRN Reason: Shortness Of Breath/wheezing Bisacodyl (Dulcolax) 5 mg PO DAILY PRN PRN Reason: Constipation Enoxaparin Sodium (Lovenox) 40 mg SUBCUT Q24H [facility] Last Admin: 12/05/18 15:29 Dose: Not Given Furosemide (Lasix) 40 mg IVPUSH BID [facility] Ceftriaxone Sodium 1 gm/ (Sodium Chloride) 50 mls @ 100 mls/hr IV Q24H [facility] Last Admin: 12/06/18 08:41 Dose: 100 mls/hr Nicotine (Habitrol) 14 mg TRDERM DAILY [facility] Last Admin: 12/06/18 08:45 Dose: 14 mg Olmesartan (Benicar) 20 mg PO DAILY [facility] Last Admin: 12/06/18 08:37 Dose: 20 mg Ondansetron HCl (Zofran Odt) 4 mg PO Q6H PRN PRN Reason: nausea, able to take PO Oxycodone HCl (Oxycodone) 5 mg PO Q4H PRN PRN Reason: Pain (moderate 4-6) Last Admin: 12/05/18 20:21 Dose: 5 mg Sodium Chloride (Saline Flush) 10 ml FLUSH ASDIRECTED PRN PRN Reason: Keep Vein Open Sodium Chloride (Saline Flush) 2.5 ml FLUSH ASDIRECTED PRN PRN Reason: Keep Vein Open Temazepam (Restoril) 15 mg PO BEDTIME PRN PRN Reason: Sleep Discontinued Medications Albuterol/Ipratropium (Duoneb 3.0-0.5 Mg/3 Ml) 3 ml NEB ONETIME ONE Stop: 12/05/18 10:29 Last Admin: 12/05/18 10:56 Dose: 3 ml Furosemide (Lasix) 40 mg IVPUSH NOW ONE Stop: 12/05/18 10:45 Last Admin: 12/05/18 11:01 Dose: 40 mg Furosemide (Lasix) 40 mg IVPUSH DAILY [facility] Last Admin: 12/06/18 08:45 Dose: 40 mg Ceftriaxone Sodium/Dextrose 1 (gm/ Premix) 50 mls @ 100 mls/hr IV ONETIME ONE Stop: 12/05/18 12:57 Last Admin: 12/05/18 13:13 Dose: 100 mls/hr Methylprednisolone Sodium Succinate (Solu-Medrol) 125 mg IVPUSH ONETIME ONE Stop: 12/05/18 10:29 Last Admin: 12/05/18 11:01 Dose: 125 mg - Exam General: Alert, Oriented, Cooperative HEENT: Pupils Equal, Pupils Reactive, EOMI, Mucous Membr. Moist/[place] Neck: Supple Lungs: Other (cardiac wheezing bilaterally ) Cardiovascular: Regular Rate, Regular Rhythm GI/Abdominal Exam: Soft, Non-Tender, Other (dependent edema ) Extremities: Other (bilateral pedal edema 2+ extending into the thighs) Peripheral Pulses: 2+: Dorsalis Pedis (L), Dorsalis Pedis (R) Psy/Mental Status: Alert, Normal Affect, Normal Mood - Problem List Review Problem List Initiated/Reviewed/Updated: Yes - My Orders Last 24 Hours: My Active Orders 12/06/18 08:46 Daily Weight [Height and Weight] [RC] DAILY 12/06/18 09:00 Furosemide [Lasix] 40 mg IVPUSH BID 12/06/18 Lunch Fluid Restriction [DIET] - Plan Plan:: Assessment: #1. CHF exacerbation #2. Community acquired pneumonia #3. Enlarged liver noted on CT #4. Dependent edema #5. Mild hyponatremia #6. Thrombocytopenia #7. Hypertension Plan: #1. Add PO Azithromycin to cover for community acquired pneumonia #2. Increase lasix to 40mg IV BID, daily weights and fluid restriction to 1500mL daily. Encourage ambulation. #3. Follow up on echo and US of abdomen - I'm suspecting fatty liver disease #4. CBC, CMP tomorrow AM. #5. Continue to monitor blood pressure - will hold off on starting a new medication given the increased amount of lasix he's receiving. He will likely need an antihypertensive started by PCP. #6. To follow up with Dr. Barber upon discharge.
[2018-12-06] MEDS ORDERED: Furosemide 40 MG/4 ML VIAL IVPUSH SCH (09:00)
[2018-12-06] MEDS: Azithromycin 250 MG Tab PO SCH (10:54)
--- NOTE | 2018-12-06 14:30 | CR ---
EXAM DATE: 12/05/18 PATIENT'S AGE: 58 Patient: ARNALDO PAYAN Facility: [place], [place] Site . Site : 1960 Study: XRay Chest [id number]/20/2019 10:47:17 AM Ordering Physician: Herson Vasquez Final Report: CHEST 1 VIEW AP INDICATION: Chest pain IMPRESSION: Cardiomegaly with left atrial enlargement. Patchy opacity right base atelectasis or pneumonia could be considered. Consider follow-up standard PA and lateral views. FINDINGS: Cardiomegaly and probable left atrial enlargement. Under penetration of the lung bases. No definite areas of dense consolidation however the right diaphragm is indistinct. Right basilar process could be considered. No pneumothorax or large volume effusion. Dictated by Garth Tao MD @ Dec 05 2018 10:55AM (Electronic Signature) Report Signed by Proxy. EPHRAIM
--- NOTE | 2018-12-06 14:32 | CT ---
EXAM DATE: 12/05/18 PATIENT'S AGE: 58 Patient: ARNALDO PAYAN Facility: [place], [place] Site . Site : 1960 Study: CT Abdomen/Pelvis [id number]/20/2019 11:30:08 AM Ordering Physician: Herson Vasquez Final Report: INDICATION : Ascites and abdominal distension TECHNIQUE : CT scan of the abdomen and pelvis. NO IV CONTRAST FINDINGS: Dependent body wall edema. Flank edema. Mild retroperitoneal edema is present. Respiratory motion artifact. The liver is enlarged. Spleen, pancreas, adrenal glands normal. Hydronephrosis of the left kidney. No obvious stone. Right kidney is unremarkable although the right renal pelvis is slightly ectatic. Bladder and prostate are normal. No enlarged lymph nodes. Generalized numerous lymph nodes are present in the pelvis but these are normal by size criteria. Lung bases and skeletal structures are unremarkable. The pelvic skeletal hyperostosis changes of the lower thoracic spine. IMPRESSION : 1. Dependent edema as well as flank edema. 2. Enlarged liver suggesting parenchymal disease correlate with liver function studies. 3. No ascites. 4. Hydronephrosis of the left kidney with no obvious urinary calculus consider follow-up. 5. No free air, bowel obstruction or other acute radiographic abnormality. Please note that all CT scans at this facility use dose modulation, iterative reconstruction, and/or weight-based dosing when appropriate to reduce radiation dose to as low as reasonably achievable. Dictated by Garth Tao MD @ Dec 05 2018 12:04PM (Electronic Signature) Report Signed by Proxy. EPHRAIM
[2018-12-06] MEDS: Enoxaparin 40 MG/0.4 ML Syringe SUBCUT SCH (15:35)
--- NOTE | 2018-12-06 15:37 | US ---
EXAMINATION: Right upper quadrant ultrasound HISTORY: Hepatomegaly COMPARISON: CT scan dated 12/05/2018 TECHNIQUE: Grayscale and color Doppler imaging obtained. FINDINGS: The visualized pancreas appear normal. The liver is normal in contour and in mildly increased in generalized echotexture without a focal hepatic mass. Gallbladder wall thickness is borderline at 3 mm. Common bile duct measures 3 mm. No pericholecystic fluid or shadowing gallstones. Right kidney measures at least 15.5 cm [id number] without evidence of hydronephrosis. Sonographic Pierre sign is negative. IMPRESSION: 1. Mild fatty infiltration of the liver.
[2018-12-07] MEDS: oxyCODONE 5 MG Tab PO PRN (01:28)
[2018-12-07 05:46] LABS: CHLORIDE,CL 98 mmol/L (98-107); SODIUM,NA 138 mmol/L (136-148)
[2018-12-07] MEDS: cefTRIAXone 1 GM in Sodium Chloride 0.9% 50 ML IV SCH (09:09)
[2018-12-07] MEDS: Azithromycin 250 MG Tab PO SCH (09:10)
[2018-12-07] MEDS: Nicotine 14 MG/24 Hr Patch TRDERM SCH (09:10)
[2018-12-07] MEDS: Olmesartan 20 MG Tab PO SCH (09:10)
[2018-12-07] MEDS: Furosemide 40 MG/4 ML VIAL IVPUSH SCH (09:11)
--- NOTE | 2018-12-07 10:43 | PCM.DCSUM1 ---
Discharge Summary - Hospital Course Free Text/Narrative:: Admission date: 12/05/2018 Discharge date: 12/07/2018 Admission diagnosis: #1. CHF Exacerbation #2. Pneumonia #3. Hypoxia #4. History of HTN, Obesity, CHF Discharge diagnosis: #1. CHF Exacerbation - stable #2. Community acquired Pneumonia - clinically improved #3. Hypoxia - resolved #4. History of HTN, Obesity, CHF #5. Hx of Tobacco abuse Hospital course: 58M with the above history that presented w/ cc of cough, congestion, sob, and fluid retention found to have a pneumonia on CXR was admitted for CHF exacerbation and treatment of his infectious process. He was treated w/ IV Lasix 40mg BID, strict i's and o's and daily weights. He was also placed on Rocephin and Azithromycin. Patient responded well to this. He was discharged home w/ Azithromycin, 40mg PO daily of Lasix and advised to f/u with PCP. He was educated on CHF, daily weight checks and return precautions. He was also given a nicotine patch for tobacco cessation. He is to f/u with is PCP, Dr. Barber, and with cardiology as scheduled. - Discharge Data Discharge Date: 12/07/18 Discharge Disposition: Home, Self-Care 01 Condition: Stable - Patient Instructions Diet: Heart Healthy Diet Activity: As Tolerated Other/Special Instructions: Return if you experience increased shortness of breath, chest pain. Please check your weight daily. If you gain more than 3lbs in one week, contact your primary care provider. - Discharge Plan Prescriptions/Med Rec: Azithromycin 500 mg PO Q24H 3 Days #3 tablet Furosemide [Lasix] 40 mg PO DAILY 14 Days #14 tablet Nicotine [Nicotine Patch] 21 mg TD Q24H #30 patch Home Medications: Home Meds Olmesartan Medoxomil [Benicar] 20 mg PO DAILY 12/05/18 [History] Azithromycin 500 mg PO Q24H 3 Days #3 tablet 12/07/18 [Rx] Furosemide [Lasix] 40 mg PO DAILY 14 Days #14 tablet 12/07/18 [Rx] Nicotine [Nicotine Patch] 21 mg TD Q24H #30 patch 12/07/18 [Rx] Patient Handouts: Furosemide tablets, Heart Failure, [id number], Nicotine skin patches, Community-Acquired Pneumonia, Adult, [id number] Referrals: [facility] [Outside] Иван العلي MD [Physician] - 12/20/18 8:00 am Nikita Barber MD [Ordering Only Provider] - 12/16/18 10:00 am (Bring ID and insurance card. Bring all pill bottles.) - Discharge Summary/Plan Comment DC Time >30 min.: No - Patient Data Vitals - Most Recent: Last Vital Signs Temp 36 C 12/07/18 07:15 Pulse 65 12/07/18 07:15 Resp 20 12/07/18 07:15 BP 144/81 H 12/07/18 09:10 Pulse Ox 93 L 12/07/18 07:15 Weight - Most Recent: 122.062 kg I&O - Last 24 hours: Intake & Output 12/06/18 12/07/18 12/07/18 22:59 06:59 14:59 Intake Total 450 1000 Output Total 3750 2300 Balance -3300 -1300 Lab Results - Last 24 hrs: Laboratory Results - last 24 hr 12/07/18 Range/Units 04:53 Sodium 138 (136-148) mmol/L Potassium 3.9 (3.5-5.1) mmol/L Chloride 98 (98-107) mmol/L Carbon Dioxide 35.6 H (21.0-32.0) mmol/L BUN 22 H (7.0-18.0) mg/dL Creatinine 1.2 (0.8-1.3) mg/dL Est Cr Clr Drug Dosing 73.21 mL/min Estimated GFR (MDRD) > 60.0 ml/min Glucose 120 H (74-106) mg/dL Calcium 9.4 (8.5-10.1) mg/dL IGNRID Results - Last 24 hrs: Microbiology 12/05/18 11:41 Aerobic Blood Culture - Preliminary Blood - Venous - Lab Draw NO GROWTH AFTER 1 DAY Anaerobic Blood Culture - Preliminary NO GROWTH AFTER 1 DAY 12/05/18 11:06 Aerobic Blood Culture - Preliminary Blood - Venous NO GROWTH AFTER 1 DAY Anaerobic Blood Culture - Preliminary NO GROWTH AFTER 1 DAY Med Orders - Current: Current Medications Acetaminophen (Tylenol) 650 mg PO Q4H PRN PRN Reason: Pain (Mild 1-3)/fever Albuterol/Ipratropium (Duoneb 3.0-0.5 Mg/3 Ml) 3 ml NEB Q4HRRT PRN PRN Reason: Shortness Of Breath/wheezing Azithromycin (Zithromax) 500 mg PO Q24H [facility] Last Admin: 12/07/18 09:10 Dose: 500 mg Bisacodyl (Dulcolax) 5 mg PO DAILY PRN PRN Reason: Constipation Enoxaparin Sodium (Lovenox) 40 mg SUBCUT Q24H [facility] Last Admin: 12/06/18 15:35 Dose: Not Given Furosemide (Lasix) 40 mg IVPUSH BID [facility] Last Admin: 12/07/18 09:11 Dose: 40 mg Ceftriaxone Sodium 1 gm/ (Sodium Chloride) 50 mls @ 100 mls/hr IV Q24H [facility] Last Admin: 12/07/18 09:09 Dose: 100 mls/hr Nicotine (Habitrol) 14 mg TRDERM DAILY [facility] Last Admin: 12/07/18 09:10 Dose: 14 mg Olmesartan (Benicar) 20 mg PO DAILY [facility] Last Admin: 12/07/18 09:10 Dose: 20 mg Ondansetron HCl (Zofran Odt) 4 mg PO Q6H PRN PRN Reason: nausea, able to take PO Oxycodone HCl (Oxycodone) 5 mg PO Q4H PRN PRN Reason: Pain (moderate 4-6) Last Admin: 12/07/18 01:28 Dose: 5 mg Sodium Chloride (Saline Flush) 10 ml FLUSH ASDIRECTED PRN PRN Reason: Keep Vein Open Sodium Chloride (Saline Flush) 2.5 ml FLUSH ASDIRECTED PRN PRN Reason: Keep Vein Open Temazepam (Restoril) 15 mg PO BEDTIME PRN PRN Reason: Sleep Discontinued Medications Albuterol/Ipratropium (Duoneb 3.0-0.5 Mg/3 Ml) 3 ml NEB ONETIME ONE Stop: 12/05/18 10:29 Last Admin: 12/05/18 10:56 Dose: 3 ml Furosemide (Lasix) 40 mg IVPUSH NOW ONE Stop: 12/05/18 10:45 Last Admin: 12/05/18 11:01 Dose: 40 mg Furosemide (Lasix) 40 mg IVPUSH DAILY [facility] Last Admin: 12/06/18 08:45 Dose: 40 mg Ceftriaxone Sodium/Dextrose 1 (gm/ Premix) 50 mls @ 100 mls/hr IV ONETIME ONE Stop: 12/05/18 12:57 Last Admin: 12/05/18 13:13 Dose: 100 mls/hr Methylprednisolone Sodium Succinate (Solu-Medrol) 125 mg IVPUSH ONETIME ONE Stop: 12/05/18 10:29 Last Admin: 12/05/18 11:01 Dose: 125 mg *Q Meaningful Use (DIS) - VTE *Q VTE Mechanical Contraindications *Q: Bilateral Lower Dermatits
--- NOTE | 2018-12-09 13:28 | ECHO ---
EXAM DATE: 12/05/18 PATIENT'S AGE: 58 The echocardiogram report can be seen in this patient's EMR (Electronic Medical Record) in the Reports section. The report has also been scanned into PACs. EPHRAIM
== END 2018-12-07 11:30 | disposition home or self-care (01) ==
LOC: MW.ED 10:26 → MW.MS 12:27
PROVIDERS: ADMIT Internal Medicine; ATTEND Internal Medicine
DX: I11.0 Hypertensive heart disease with heart failure (principal); I50.9 Heart failure, unspecified; J18.1 Lobar pneumonia, unspecified organism; E87.1 Hypo-osmolality and hyponatremia; D69.6 Thrombocytopenia, unspecified; I42.9 Cardiomyopathy, unspecified; F17.210 Nicotine dependence, cigarettes, uncomplicated; R09.02 Hypoxemia; R16.0 Hepatomegaly, not elsewhere classified; E66.01 Morbid (severe) obesity due to excess calories; Z68.37 Body mass index [BMI] 37.0-37.9, adult; Z79.899 Other long term (current) drug therapy
CPT/HCPCS: 36415; 71045; 74176; 76705; 80048; 80053; 81001; 83605; 83880; 84484; 85025; 87040; 87804; 93005; 93306; 94640; 96365; 96366; 96375; 96376; 99285; A9270; G0378; J0696; J1940; J2930; J7050; 99284; J7620-GY